=== PATIENT | male | born 1945 | race Hispanic/Latino ===

== ENCOUNTER → 2018-09-30 | Outpatient (CLI) | payer MEDICARE, OTHER ==
[~2018-09-30] MED LIST: ASPIR 8181 MG PO; DAILY VITAMIN1 EAC3 PO; FUROSEMIDE20 MG; LEVOTHYROXINE50 MCG PO; LIPITOR20 MG PO; LOSARTAN POTAS100 MG PO; MELOXICAM; NEXIUM PO; NIASPAN; OMEGA-31000 MG PO; PRAVASTATIN SOD20 MG; REGADENOSON 0.4 MG/5 ML SYR IV ONE; TOPROL XL50 MG PO; VITAMIN B-121000 MCG PO
--- NOTE | 2018-10-01 10:59 | Myoview Stress Test ---
DATE OF STUDY: 09/30/2018 08:32:00 Stress Test - Treadmill ONLY PROCEDURE INDICATION: Chest pain. PREOPERATIVE EVALUATION: The patient with CAD status post aortocoronary bypass, abnormal EKG. Resting heart rate 69, blood pressure 145/71. Resting EKG, normal sinus rhythm, inferior infarct age undetermined and nonspecific repolarization abnormalities. After Lexiscan was administered, heart rate pillo to 87 beats per minute, blood pressure increased to 149/72. There were no significant ST changes or arrhythmias throughout stress or recovery. Myocardial perfusion reveals moderate-sized severe basal to mid inferior and inferolateral fixed rest and stress perfusion defect. Gated images demonstrate segmental impairment in left ventricular systolic function with left ventricular ejection fraction 44% and akinesis of the base to mid inferior and inferolateral segments. CONCLUSION: 1. Normal hemodynamic response to stress. 2. Normal electrocardiographic response to stress. 3. Abnormal myocardial perfusion with [id number] inferior and inferolateral nontransmural scar. 4. Cardiomyopathy with left ventricular ejection fraction of 44%. Mild impairment in left ventricular systolic function. MD CHRIS Downing/MODL /[id number]
== END ==
LOC: NM 08:18
PROVIDERS: ATTEND Internal Medicine Cardiovascular Disease
DX: Z01.818 Encounter for other preprocedural examination (principal); R07.9 Chest pain, unspecified; I42.9 Cardiomyopathy, unspecified; I25.10 Atherosclerotic heart disease of native coronary artery without angina pectoris; I10 Essential (primary) hypertension; I50.22 Chronic systolic (congestive) heart failure; E11.8 Type 2 diabetes mellitus with unspecified complications; E66.01 Morbid (severe) obesity due to excess calories
CPT/HCPCS: 78452; 93017; A9502; J2785

== ENCOUNTER → 2019-02-04 | Outpatient (CLI) | payer MEDICARE, OTHER ==
[~2019-02-04] VITALS: Ht 163.8 cm; Wt 95.3 kg
[~2019-02-04] MED LIST changes: -REGADENOSON 0.4 MG/5 ML SYR IV ONE
[2019-02-04 16:01] LABS: BASOPHILS # (AUTO) 0.1 (0.0-0.1); BASOPHILS % 0.9 % (0.0-1.0); EOSINOPHILS # (AUTO) 0.2 (0.0-0.4); EOSINOPHILS % 1.9 % (0.0-6.0); HEMATOCRIT 37.3 % (38.2-49.6); HEMOGLOBIN 12.3 g/dL (14.0-18.0); LYMPHOCYTES # (AUTO) 2.9 (1.0-3.2); LYMPHOCYTES % 31.1 % (18.0-39.1); MEAN CORPUSCULAR HEMOGLOBIN 29.4 pg (28-32); MONOCYTES # (AUTO) 0.7 (0.2-0.8); MONOCYTES % 7.1 % (4.4-11.3); NEUTROPHILS # (AUTO) 5.5 (2.1-6.9); NEUTROPHILS % 58.8 % (38.7-80.0); PLATELET COUNT 207 x10e3/uL (140-360); RED BLOOD COUNT 4.19 x10e6/uL (4.3-5.7); RED CELL DISTRIBUTION WIDTH 14.3 % (11.7-14.4)
[2019-02-04 16:11] LABS: INR 0.97; PROTHROMBIN TIME 13.4 seconds (11.9-14.5)
[2019-02-04 16:18] LABS: ALANINE AMINOTRANSFERASE 11 IU/L (0-55); ALBUMIN 3.7 g/dL (3.5-5.0); ALBUMIN/GLOBULIN RATIO 0.9 (0.8-2.0); ALKALINE PHOSPHATASE 115 IU/L (40-150); BLOOD UREA NITROGEN 22 mg/dL (7-26); BUN/CREATININE RATIO 20 (6-25); CALCIUM 9.5 mg/dL (8.4-10.2); CARBON DIOXIDE 24 mmol/L (22-29); CHLORIDE 107 mmol/L (98-107); CREATININE, SERUM 1.12 mg/dL (0.72-1.25); EST GLOMERULAR FILTRATION RATE > 60 ML/MIN (60-); GLUCOSE 100 mg/dL (74-118); SODIUM 141 mmol/L (136-145)
[2019-02-04 16:36] LABS: CHOL/HDL RATIO 3.5 (3.9-4.7)
== END ==
LOC: RAD 05:00 → EDSTATUS 02-08 10:00
PROVIDERS: ATTEND Internal Medicine Cardiovascular Disease
DX: Z01.818 Encounter for other preprocedural examination (principal); I73.9 Peripheral vascular disease, unspecified
CPT/HCPCS: 36415; 80053; 80061; 85025; 85610; 93005